=== PATIENT | female | born 1965 | race Hispanic/Latino ===

== ENCOUNTER 2019-11-20 12:12 | Emergency (ER) | payer SELFPAY ==
[2019-11-20 14:15] LABS: Urine Blood 2+ (NEG); Urine Glucose 2+ (NEG); Urine Protein 2+ (NEG); Urine Specific Gravity 1.025 (1.005-1.030); Urine pH 5.5 (5.0-7.0)
[2019-11-20 14:21] LABS: Urine Bacteria >50 /HPF (<20); Urine Culture Reflex Order REFLEXED
[2019-11-20 15:07] LABS: Absolute Lymphocytes (CBC) 0.6 K/uL (0.7-4.9); Basophils % 0.1 % (0-1.3); Hematocrit 43.2 % (36.0-45.0); Lymphocytes % 5.1 % (15.3-44.8); MPV 8.3 fL (7.6-11.3); RBC Red Blood Cell Count 4.84 M/uL (3.86-4.86)
[2019-11-20 15:14] LABS: Albumin 3.8 g/dL (3.4-5.0); Bilirubin Direct 0.3 mg/dL (0-0.2); Bilirubin Total 1.4 mg/dL (0.2-1.0); Potassium 4.1 mmol/L (3.5-5.1); Protein, Total 8.7 g/dL (6.4-8.2)
--- NOTE | 2019-11-20 15:29 | RAD REPORT ---
EXAM DESCRIPTION: CT - Stone Protocol - 11/20/2019 3:13 pm CLINICAL HISTORY: Abdominal pain. Right flank pain COMPARISON: None. TECHNIQUE: Computed axial tomography of the abdomen pelvis was obtained without oral or IV contrast. Lack of IV and oral contrast limits evaluation of solid organs, bowel, and vessels. Coronal reformat margie images were obtained and reviewed. All CT scans are performed using dose optimization technique as appropriate and may include automated exposure control or mA/KV adjustment according to patient size. FINDINGS: A renal calculus is not seen. An ureteral calculus is not noted. A bladder calculus is not present. Mild right perirenal stranding. Mild fatty liver The Spleen, pancreas and adrenals appear grossly normal There is no evidence of diverticulitis. The appendix appears normal Small umbilical hernia Small left posterolateral disc herniation may be present L4-5 IMPRESSION: Negative for a genitourinary calculus Mild right perirenal stranding may indicate renal inflammation
[2019-11-20 15:32] LABS: Blood Morphology Comment NOT SEEN (NOT SEEN); Platelet Estimate ADEQ; Urine White Blood Cell Casts OK
[2019-11-20] MEDS ORDERED: CEFTRIAXONE/SWI 1gm 1 GM/10 ML SYR ONE (15:42)
[2019-11-20] MEDS ORDERED: MORPHINE 4 MG/ML SYR ONE (15:57)
[2019-11-20] MEDS ORDERED: ONDANSETRON 4 MG/2 ML VIAL ONE (15:57)
--- NOTE | 2019-11-20 16:52 | ER ---
Nurse's Notes [facility] Name: Jon Fernandes Age: 54 yrs Sex: Female : 1965 Arrival Date: 11/20/2019 Time: 12:15 Bed 20 Private MD: Diagnosis: Right flank pain;Pyleonephritis Presentation: 11/19 12:44 Chief complaint: Patient states: R flank pain since Monday. Reports strong odor of ca1 urine and headaches, chills. Denies fever. Coronavirus screen: The patient has NOT traveled to a country currently being monitored by the [facility] within the last 14 days. The patient has NOT had contact with any known and/or suspected case of coronavirus. Ebola Screen: Patient negative for fever greater than or equal to 101.5 degrees Fahrenheit, and additional compatible Ebola Virus Disease symptoms Patient denies exposure to infectious person. Patient denies travel to an Ebola-affected area in the 21 days before illness onset. No symptoms or risks identified at this time. Initial Sepsis Screen: Does the patient meet any 2 criteria? No. Patient's initial sepsis screen is negative. Does the patient have a suspected source of infection? No. Patient's initial sepsis screen is negative. Risk Assessment: Do you want to hurt yourself or someone else? Patient reports no desire to harm self or others. Onset of symptoms was November 20, 2019. 12:44 Method Of Arrival: Ambulatory ca1 12:44 Acuity: DELBERT 3 ca1 Triage Assessment: 12:47 General: Appears in no apparent distress. comfortable, Behavior is calm, cooperative, ca1 appropriate for age. Pain: Complains of pain in posterior aspect of right lateral abdomen. Musculoskeletal: Circulation, motion, and sensation intact. Capillary refill < 3 seconds. 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 - Social history:: Smoking status: Patient denies any tobacco usage or history of. Screenin:30 Abuse screen: Denies threats or abuse. Denies injuries from another. Nutritional jl7 screening: No deficits noted. Tuberculosis screening: No symptoms or risk factors identified. Fall Risk None identified. Assessment: 14:30 General: Appears in no apparent distress. uncomfortable, Behavior is calm, cooperative, jl7 appropriate for age. Pain: Complains of pain in right flank Pain radiates to right lower quadrant Pain currently is 5 out of 10 on a pain scale. Pain began 2-3 days ago. Is continuous. Neuro: Level of Consciousness is awake, alert, obeys commands, Oriented to person, place, time, situation. Cardiovascular: Patient's skin is warm and dry. Respiratory: Airway is patent Respiratory effort is even, unlabored, Respiratory pattern is regular, symmetrical. : Reports pain with urination, Denies burning with urination. Derm: Skin is pink, warm \\T\\ dry. 17:33 Reassessment: Pt's temp 102.5, states "I'll take some medicine when I get home.". jl7 Vital Signs: 12:44 BP 135 / 58; Pulse 101; Resp 17 S; Temp 97.4(O); Pulse Ox 97% on R/A; Weight 56.7 kg ca1 (R); Height 4 ft. 11 in. (149.86 cm) (R); 15:30 BP 136 / 69; Pulse 111; Resp 16 S; Temp 99.3(O); Pulse Ox 99% on R/A; Pain 5/10; jl7 16:00 BP 149 / 60; Pulse 102; Resp 16 S; Pulse Ox 100% on R/A; jl7 17:15 BP 129 / 86; Pulse 112; Resp 16 S; Temp 102.5(O); Pulse Ox 100% on R/A; jl7 12:44 Body Mass Index 25.25 (56.70 kg, 149.86 cm) ca1 ED Course: 12:15 Patient arrived in ED. rg4 12:40 Liam Figueroa MD is Attending Physician. kdr 12:47 Triage completed. ca1 12:47 Arm band placed on right wrist. ca1 13:18 Urine collected: clean catch specimen, cloudy, Amount Voided: 50mL. ca1 13:57 Reddy Gerardo, LÓPEZ is Primary Nurse. jl7 14:15 Urine Microscopic Only Sent. ca1 14:30 Patient has correct armband on for positive identification. Bed in low position. Call jl light in reach. Side rails up X 1. 14:45 Initial lab(s) drawn, by me, sent to lab. Inserted saline lock: 20 gauge in left jl7 antecubital area, using aseptic technique. Blood collected. 15:15 CT Stone Protocol In Process Unspecified. EDMS 17:38 No provider procedures requiring assistance completed. IV discontinued, intact, jl7 bleeding controlled, No redness/swelling at site. Pressure dressing applied. Administered Medications: 15:53 Drug: Zofran (Ondansetron) 4 mg Route: IVP; Site: left antecubital; jl7 16:15 Follow up: Response: No adverse reaction jl7 15:55 Drug: morphine 4 mg Route: IVP; Site: left antecubital; jl7 16:15 Follow up: Response: No adverse reaction; Pain is decreased jl7 16:00 Drug: Rocephin 1 grams Route: IV; Rate: calculated rate; Site: left antecubital; jl7 16:03 Follow up: Response: No adverse reaction; IV Status: Completed infusion jl7 16:04 Not Given (Duplicate Order): Rocephin - (cefTRIAXone) 1 grams IVPB once over 30 mins; jl7 (mix in 50 mL NS) Outcome: 16:52 Discharge ordered by . kdr 17:38 Discharged to home ambulatory. jl7 17:38 Condition: stable 17:38 Discharge instructions given to patient, family, Instructed on discharge instructions, follow up and referral plans. medication usage, Demonstrated understanding of instructions, follow-up care, medications, Prescriptions given X 2. 17:39 Patient left the ED. jl7 Addendum: 11/22/2019 17:55 Addendum: Culture Results: Positive urine culture. Bacteria is resistant to, has i w intermediate sensitivity, or is not tested against prescribed antibiotics. Report given to JENSEN for further evaluation and then to textile machinery instructor for follow up with patient. Phone call Attempt #1 pt still having urinary s/s Prescription called-in to pharmacy of choice. [facility] in [place], Augmentin 875 PO BID X 10 days, no refills. Signatures: Dispatcher [employer] [facility] Liam Figueroa MD MD kdr Williams, Irene, RN RN iw Garcia, Rubi rg4 Reddy Gerardo RN RN jl7 Acob, Emi, RN RN ca1
--- NOTE | 2019-11-20 16:53 | EDPHYS ---
Physician Documentation [facility] Name: Jon Fernandes Age: 54 yrs Sex: Female : 1965 Arrival Date: 11/20/2019 Time: 12:15 Bed 20 Private MD: ED Physician Liam Figueroa HPI: 11/20 08:14 This 54 yrs old Female presents to ER via Ambulatory with complaints of Back kdr Pain. 08:14 The patient presents with pain that is acute. The symptoms are located in the right kdr flank. Onset: The symptoms/episode began/occurred gradually, Since Monday. The pain does not radiate. Associated signs and symptoms: Pertinent positives: nausea, Pertinent negatives: abdominal pain, dysuria, fever, headache, hematuria, incontinence, nausea, numbness, vomiting, weakness. The problem was sustained from unknown cause. Modifying factors: The patient symptoms are alleviated by nothing, the patient symptoms are aggravated by any movement. Severity of symptoms: At their worst the symptoms were mild, in the emergency department the symptoms are unchanged. The patient has not experienced similar symptoms in the past. The patient has not recently seen a physician. 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 - Social history:: Smoking status: Patient denies any tobacco usage or history of. ROS: 11/20 08:14 Constitutional: Negative for fever, chills, and weight loss, Eyes: Negative for injury, kdr pain, redness, and discharge, ENT: Negative for injury, pain, and discharge, Neck: Negative for injury, pain, and swelling, Cardiovascular: Negative for chest pain, palpitations, and edema, Respiratory: Negative for shortness of breath, cough, wheezing, and pleuritic chest pain, Back: Negative for injury and pain, : Negative for injury, bleeding, discharge, and swelling, MS/Extremity: Negative for injury and deformity, Skin: Negative for injury, rash, and discoloration, Neuro: Negative for headache, weakness, numbness, tingling, and seizure activity. Psych: Negative for depression, anxiety, suicide ideation, homicidal ideation, and hallucinations, Allergy/Immunology: Negative for hives, rash, and allergies, Endocrine: Negative for neck swelling, polydipsia, polyuria, polyphagia, and marked weight changes, Hematologic/Lymphatic: Negative for swollen nodes, abnormal bleeding, and unusual bruising. Abdomen/GI: Positive for abdominal pain, nausea, Negative for constipation, abdominal cramps, abdominal distension, anorexia, dysphagia, hematemesis, black/tarry stool, rectal pain, rectal bleeding, bowel incontinence. Exam: 08:14 Constitutional: This is a well developed, well nourished patient who is awake, alert, kdr and in no acute distress. Head/Face: Normocephalic, atraumatic. Eyes: Pupils equal round and reactive to light, extra-ocular motions intact. Lids and lashes normal. Conjunctiva and sclera are non-icteric and not injected. Cornea within normal limits. Periorbital areas with no swelling, redness, or edema. Neck: Trachea midline, no thyromegaly or masses palpated, and no cervical lymphadenopathy. Supple, full range of motion without nuchal rigidity, or vertebral point tenderness. No Meningismus. Chest/axilla: Normal chest wall appearance and motion. Nontender with no deformity. No lesions are appreciated. Cardiovascular: Regular rate and rhythm with a normal S1 and S2. No gallops, murmurs, or rubs. Normal PMI, no JVD. No pulse deficits. Respiratory: Lungs have equal breath sounds bilaterally, clear to auscultation and percussion. No rales, rhonchi or wheezes noted. No increased work of breathing, no retractions or nasal flaring. Back: No spinal tenderness. No costovertebral tenderness. Full range of motion. Skin: Warm, dry with normal turgor. Normal color with no rashes, no lesions, and no evidence of cellulitis. MS/ Extremity: Pulses equal, no cyanosis. Neurovascular intact. Full, normal range of motion. Neuro: Awake and alert, GCS 15, oriented to person, place, time, and situation. Cranial nerves II-XII grossly intact. Motor strength 5/5 in all extremities. Sensory grossly intact. Cerebellar exam normal. Normal gait. Psych: Awake, alert, with orientation to person, place and time. Behavior, mood, and affect are within normal limits. 08:14 Abdomen/GI: Inspection: abdomen appears normal, Bowel sounds: normal, Palpation: soft, mild abdominal tenderness, in the epigastric area and right upper quadrant. Vital Signs: 11/19 12:44 BP 135 / 58; Pulse 101; Resp 17 S; Temp 97.4(O); Pulse Ox 97% on R/A; Weight 56.7 kg ca1 (R); Height 4 ft. 11 in. (149.86 cm) (R); 15:30 BP 136 / 69; Pulse 111; Resp 16 S; Temp 99.3(O); Pulse Ox 99% on R/A; Pain 5/10; jl7 16:00 BP 149 / 60; Pulse 102; Resp 16 S; Pulse Ox 100% on R/A; jl7 17:15 BP 129 / 86; Pulse 112; Resp 16 S; Temp 102.5(O); Pulse Ox 100% on R/A; jl7 12:44 Body Mass Index 25.25 (56.70 kg, 149.86 cm) ca1 MDM: 16:52 Patient medically screened. [facility] 11/20 08:14 Data reviewed: vital signs, nurses notes. Counseling: I had a detailed discussion with kdr the patient and/or guardian regarding: the historical points, exam findings, and any diagnostic results supporting the discharge/admit diagnosis, lab results, radiology results, the need for outpatient follow up. 11/19 13:40 Order name: Urine Dipstick--Ancillary (enter results); Complete Time: 15:16 11/19 13:40 Order name: Urine Microscopic Only; Complete Time: 15:16 bd 11/19 14:29 Order name: Basic Metabolic Panel; Complete Time: 15:16 kdr 11/19 14:29 Order name: CBC with Diff; Complete Time: 15:45 kdr 11/19 14:29 Order name: Creatinine for Radiology; Complete Time: 15:16 kdr 11/19 14:29 Order name: Hepatic Function; Complete Time: 15:16 kdr 11/19 14:29 Order name: Lipase; Complete Time: 15:16 kdr 11/19 14:49 Order name: Urine Culture EDMS 11/19 14:59 Order name: CT Stone Protocol; Complete Time: 15:45 kdr 11/19 15:32 Order name: CBC Smear Scan; Complete Time: 15:45 [facility] 11/19 14:29 Order name: IV Saline Lock; Complete Time: 14:49 [facility] 11/19 14:29 Order name: Labs collected and sent; Complete Time: 14:49 [facility] 11/19 14:29 Order name: Urine Dipstick-Ancillary (obtain specimen); Complete Time: 14:38 [facility] Administered Medications: 11/19 15:53 Drug: Zofran (Ondansetron) 4 mg Route: IVP; Site: left antecubital; jl7 16:15 Follow up: Response: No adverse reaction jl7 15:55 Drug: morphine 4 mg Route: IVP; Site: left antecubital; jl7 16:15 Follow up: Response: No adverse reaction; Pain is decreased jl7 16:00 Drug: Rocephin 1 grams Route: IV; Rate: calculated rate; Site: left antecubital; jl7 16:03 Follow up: Response: No adverse reaction; IV Status: Completed infusion jl7 16:04 Not Given (Duplicate Order): Rocephin - (cefTRIAXone) 1 grams IVPB once over 30 mins; jl7 (mix in 50 mL NS) Disposition: 11/20/19 16:52 Discharged to Home. Impression: Right flank pain, Pyleonephritis. - Condition is Stable. - Prescriptions for Tramadol 50 mg Oral Tablet - take 1 tablet by ORAL route every 8 hours as needed; 12 tablet. Bactrim DS 800- 160 mg Oral Tablet - take 1 tablet by ORAL route every 12 hours for 10 days; 20 tablet. - Medication Reconciliation Form, Thank You Letter, Antibiotic Education, Prescription Opioid Use form. - Follow up: Private Physician; When: 2 - 3 days; Reason: If symptoms return, Further diagnostic work-up, Recheck today's complaints, Continuance of care, Re-evaluation by your physician. - Problem is new. - Symptoms have improved. Signatures: Dispatcher [employer] [facility] Liam Figueroa MD MD kdr Leal, Jahala RN RN jl7 Emi Lewis RN RN ca1 Corrections: (The following items were deleted from the chart) 16:26 15:47 Urine Culture+[id number].LAB.BRZ ordered. [facility] 17:39 16:52 11/20/2019 16:52 Discharged to Home. Impression: Right flank pain; jl7 Pyleonephritis. Condition is Stable. Forms are Medication Reconciliation Form, Thank You Letter, Antibiotic Education, Prescription Opioid Use. Follow up: Private Physician; When: 2 - 3 days; Reason: If symptoms return, Further diagnostic work-up, Recheck today's complaints, Continuance of care, Re-evaluation by your physician. Problem is new. Symptoms have improved. kdr
[2019-11-20 18:02] VITALS: O2SAT 100
[2019-11-20 18:04] VITALS: BP 129/86; TEMP 102.5
== END 2019-11-20 17:39 | disposition home or self-care (01) ==
LOC: ER 12:12
DX: N12 Tubulo-interstitial nephritis, not specified as acute or chronic (principal)
CPT/HCPCS: 36415; 74176; 76377; 80048; 80076; 81003; 81015; 83690; 85025; 87077; 87086; 87088; 87186; 96374; 96375; 99284; J0696; J2405

== ENCOUNTER 2025-04-30 13:59 | Emergency (ER) | payer SELFPAY ==
--- OUTSIDE RECORDS SUMMARY | 2025-04-30 14:02 | XMS REPORT | Clinical Summary ---
Author Name Unknown Organization [facility] Address [address] [place] [address] Care Team Providers Care Nursing Support Worker Name Role Phone Unavailable Primary Care Provider Unavailabl e Encounters Date Type Department Care Team Description 05/01/2024 Documentation Breast Imaging [address] [facility] [place] [address] Lucila Rolle S, RT after 04/30/2024 Social History Tobacco Use Types Packs/Day Years Used Date Smoking Tobacco: Never Assessed Comments Unknown Sex and Gender Information Value Date Recorded Sex Assigned at Not on file Legal Sex Female 11:08 AM CDT Gender Identity Not on file Sexual Orientation Not on file Plan of Treatment Health Maintenance Due Date Last Done Comments Pneumococcal Vaccine: 50+ Years (1 of 1 - PCV) 016 COVID-19 Vaccine ( season) 2024 Influenza Vaccine (#1) 2025
[2025-04-30] MEDS ORDERED: NA CHLORIDE 0.9% 500 ML ONE (15:07)
[2025-04-30 15:28] LABS: Absolute Lymphocytes (CBC) 1.7 K/uL (0.7-4.9); Hematocrit 40.7 % (36.0-45.0); Hemoglobin 14.2 g/dL (12.0-15.0); MCH 30.3 pg (27.0-35.0); MCHC 35.0 g/dL (32.0-36.0); MCV 86.7 fL (80-100); MPV 7.3 fL (7.6-11.3); Nucleated RBC Absolute Count 0.0 (0-0); Nucleated Red Blood Cells % 0.0 % (0-0); RBC Red Blood Cell Count 4.70 M/uL (3.86-4.86); White Blood Count 5.50 thou/uL (4.3-10.9)
[2025-04-30 15:31] LABS: Sqamous Epithelial None Seen /HPF (None Seen); Urine Crystals Unidentified Few /HPF (None Seen); Urine Culture Reflex Order NOT NEEDED; Urine Microscopic Reflex YN ORDER UMIC; Urine Yeast (Budding) Trace /HPF (None Seen)
[2025-04-30] MEDS ORDERED: KETOROLAC 30 MG/ML INJ ONE (15:32)
[2025-04-30 16:06] LABS: ALT/SGPT 29.0 U/L (13-56); Albumin 4.3 g/dL (3.4-5.0); Albumin/Globulin Ratio 1.4 (1.1-1.8); Alkaline Phosphatase 74.0 U/L (45-117); Anion Gap 9.1 mEq/L (5.0-15.0); BUN Blood Urea Nitrogen 7.0 mg/dL (7-18); Globulin 3.0 g/dL (2.3-3.5); Glucose Level 106.0 mg/dL (74-106); Lipase 42.0 U/L (13-75)
[2025-04-30 16:07] LABS: AST/SGOT 27.0 U/L (15-37); Potassium 4.1 mEq/L (3.5-5.1)
--- NOTE | 2025-04-30 16:23 | RAD REPORT ---
EXAMINATION: Abdomen Pelvis W/Wo Contrast CLINICAL INDICATION: Female, 59 years old.right flank pain TECHNIQUE: CT abdomen and pelvis was performed before and after the administration of IV contrast as per department protocol. Axial, sagittal and coronal reconstructions were obtained. One or more of the following dose reduction techniques were used: Automated exposure control, adjustment of the mA a nd/or kV according to patient size, and/or iterative reconstruction. Unless otherwise specified, incidental findings do not require dedicated imaging follow-up. [id number]. COMPARISON: 11/20/2019 FINDINGS: LOWER CHEST: No acute process identified.No significant pericardial effusion. Mild circumferential th ickening of the distal esophagus which could reflect esophagitis. UPPER GI: No significant abnormality. LIVER: No significant focal abnormality. GALLBLADDER/BILE DUCTS: No biliary ductal dilatation.? PANCREAS: No mass, ductal dilation, or ira-pancreatic fluid. SPLEEN: Unremarkable. ADRENALS: No adrenal masses. KIDNEYS AND URETERS: Mild left-sided hydroureteronephrosis. No obstructing stone or mass.Right renal scarring.No renal calculi.No ureteral calculi. ABDOMINAL AORTA AND OTHER VESSELS: Normal caliber aorta and IVC. PERITONEUM: No abnormal free fluid. No free air. LYMPH NODES: No pathologic lymphadenopathy. ABDOMINAL WALL: Small fat containing umbilical hernia. SMALL BOWEL/COLON: Small bowel has normal course and caliber. No colonic wall thickening or pericolon ic inflammatory changes.Normal appendix. Mild diverticulosis without diverticulitis. Low formed stool burden. URINARY BLADDER: Distended bladder. REPRODUCTIVE ORGANS: No pathologic process. MUSCULOSKELETAL: Multilevel degenerative changes in the spine. No acute fracture. ADDITIONAL FINDINGS: None. IMPRESSION: Mild left-sided hydroureteronephrosis without obstructing stone or mass. The bladder is distended. No urinary tract calculi.
--- NOTE | 2025-04-30 17:40 | EDPHYS ---
Physician Documentation [facility] Name: Jon Fernandes Age: 59 yrs Sex: Female : 1965 Arrival Date: 04/30/2025 Time: 13:59 Bed 11 Private MD: ED Physician Chalo Loco HPI: 04/30 14:25 This 59 yrs old Female presents to ER via Ambulatory with complaints of cp Abdominal Pain. 14:25 The patient presents with abdominal pain in the lower abdomen, right lower quadrant, cp right lower back. 14:25 Onset: The symptoms/episode began/occurred 2 week(s) ago, and became worse yesterday. cp Associated signs and symptoms: Pertinent negatives: chest pain, constipation, diarrhea, fever, headache, vomiting. The symptoms are described as waxing/waning. 14:25 Severity of pain: in the emergency department the pain is unchanged despite home cp interventions. Historical: - Allergies: 14:18 No Known Allergies; dd2 - PMHx: 14:18 Diabetes mellitus; dd2 - PSHx: 14:18 section; dd2 - Immunization history:: Adult Immunizations up to date. - Infectious Disease History:: Denies. - Social history:: Smoking status: Patient denies any tobacco usage or history of. ROS: 14:30 Constitutional: Negative for body aches, chills, fever, poor PO intake, cp 14:30 Eyes: Negative for injury, pain, redness, and discharge, cp 14:30 ENT: Negative for drainage from ear(s), ear pain, sore throat, difficulty swallowing, difficulty handling secretions, 14:30 Cardiovascular: Negative for chest pain, palpitations, 14:30 Respiratory: Negative for cough, shortness of breath, wheezing, 14:30 Abdomen/GI: Positive for abdominal pain, nausea, Negative for vomiting, diarrhea, constipation, anorexia, black/tarry stool, rectal bleeding, 14:30 Back: Positive for right low back, 14:30 : Negative for vaginal bleeding, vaginal discharge, 14:30 Neuro: Negative for altered mental status, 14:30 All other systems are negative, Exam: 14:33 Constitutional: The patient appears in no acute distress, alert, awake, cp non-diaphoretic, non-toxic, well developed, well nourished, uncomfortable, 14:33 Head/Face: Normocephalic, atraumatic. cp 14:33 Eyes: Periorbital structures: appear normal, Conjunctiva: normal, no exudate, no injection, Sclera: no appreciated abnormality, Lids and lashes: appear normal, bilaterally, 14:33 ENT: External ear(s): are unremarkable, Nose: is normal, Mouth: Lips: moist, Oral mucosa: moist, Posterior pharynx: Airway: no evidence of obstruction, patent, 14:33 Chest/axilla: Inspection: normal, 14:33 Cardiovascular: Rate: normal, Rhythm: regular, Edema: is not appreciated, JVD: is not appreciated, 14:33 Respiratory: the patient does not display signs of respiratory distress, Respirations: normal, no use of accessory muscles, no retractions, labored breathing, is not present, Breath sounds: are clear throughout, no decreased breath sounds, no stridor, no wheezing, 14:33 Abdomen/GI: Inspection: abdomen appears normal, Bowel sounds: active, all quadrants, Palpation: soft, in all quadrants, moderate abdominal tenderness, in the left lower quadrant, 14:33 Back: pain, that is moderate, of the left low back, ROM is normal, 14:33 Skin: cellulitis, is not appreciated, no rash present. 14:33 Neuro: Orientation: to person, place \T\ time. Mentation: is normal, Motor: moves all fours, strength is normal, Gait: is steady, Vital Signs: 14:16 BP 155 / 67; Pulse 84; Resp 16; Temp 97.9; Pulse Ox 100% on R/A; Pain 9/10; dd2 18:03 BP 147 / 71; Pulse 79; Resp 16; Pulse Ox 100% ; bp 14:16 Pain Scale: Adult dd2 MDM: 14:14 Medical Screening Exam initiated cp 15:00 Differential diagnosis: bowel obstruction, diverticulitis, Pyelonephritis, cp Ureterolithiasis, urinary tract infection, sepsis. 17:37 Refusal of service: The patient/guardian displays adequate decision making capability cp and despite a detailed discussion of alternatives, benefits, risks, and consequences refuses: barlow catheter or catheter for self cath. 17:38 Data reviewed: vital signs, nurses notes, lab test result(s), radiologic studies, CT cp scan, and as a result, I will discharge patient. 17:38 I considered the following discharge prescriptions or medication management in the emergency department Medications were administered in the Emergency Department. See MAR. Care significantly affected by the following chronic conditions: Diabetes. Counseling: I had a detailed discussion with the patient and/or guardian regarding the historical points, exam findings, and any diagnostic results supporting the discharge/admit diagnosis, lab results, radiology results, the need for outpatient follow up, for definitive care, a urologist, to return to the emergency department if symptoms worsen or persist or if there are any questions or concerns that arise at home. ED course: VSS. Discussed results of today's testing with CT showing bladder distension. Patient declined barlow placement at this time and understands need for urology f/u. Patient understands she can return to ED at anytime for reevaluation worsening symptoms. 04/30 14:20 Order name: CBC with Diff; Complete Time: 16:17 04/30 16:17 Interpretation: Normal except: MPV 7.3. 04/30 14:20 Order name: CMP; Complete Time: 16:17 04/30 16:58 Interpretation: Normal except: CL 109. 04/30 14:20 Order name: Lipase; Complete Time: 16:17 04/30 14:20 Order name: UA Rfx Lucas Cult if indicated; Complete Time: 16:17 04/30 16:58 Interpretation: Normal except: [facility] Turbid; Urine SG < 1.005; UGLUC TRACE; BYST Trace. 04/30 14:20 Order name: Test, Serum; Complete Time: 16:17 04/30 14:20 Order name: CT Abd/Pelvis- W/WO Contrast; Complete Time: 16:43 04/30 14:20 Order name: IV Saline Lock; Complete Time: 15:15 04/30 14:20 Order name: Labs collected and sent; Complete Time: 15:15 04/30 16:45 Order name: Bladder Scanner: pre and post void; Complete Time: 17:12 cp Administered Medications: 15:15 Drug: TORadol - Ketorolac IVP 15 mg IVP once Route: IVP; Site: right forearm; bp 18:04 Follow up: Response: No adverse reaction bp 15:15 Drug: NS 0.9% IV 500 ml 500 ml IV at 1 bolus once; to be given as a bolus over 60 bp minutes Volume: 500 ml; Route: IV; Rate: 1 bolus; Site: right forearm; 18:04 Follow up: IV Status: Completed infusion bp Disposition: 18:45 I was immediately available on-site in the Emergency Department for consultation in the ms3 care of the patient. Disposition Summary: 04/30/25 17:39 Discharge Ordered Notes: Location: Home cp Problem: new cp Symptoms: have improved cp Condition: Stable cp Diagnosis - Retention of urine, unspecified cp - Other hydronephrosis cp - Dorsalgia, unspecified cp Followup: cp - With: Nate Coles MD - When: 2 - 3 days - Reason: urine retention Discharge Instructions: - Discharge Summary Sheet cp - Acute Back Pain, Adult cp - Musculoskeletal Pain cp - Acute Urinary Retention, Female cp - Hydronephrosis cp Forms: - Medication Reconciliation Form cp - Antibiotic Education cp - Prescription Opioid Use cp - Patient Portal Instructions cp - Leadership Thank You Letter cp Prescriptions: - diclofenac potassium 50 mg Oral tablet - take 1 tablet ORAL route every 12 hours; 20 tablet; Refills: 0, Product cp Selection Permitted - methocarbamol 500 mg Oral tablet - take 1 tablet ORAL route every 8 hours As needed; 30 tablet; Refills: 0, cp Product Selection Permitted Signatures: Dispatcher [employer] EDIN Shravan Fischer PA PA cp Peltier, Brian, RN RN Chalo Davidson DO DO ms3 CODY MULLINS RN RN dd2 Corrections: (The following items were deleted from the chart) 14:21 14:21 Abdomen Pelvis W/Wo Con+CT.RAD.BRZ ordered. [facility] EDIN 05/01 17:33 04/30 14:25 The patient presents with abdominal pain in the lower abdomen, cp cp
--- NOTE | 2025-04-30 17:40 | ER ---
Nurse's Notes [facility] Name: Jon Fernandes Age: 59 yrs Sex: Female : 1965 Arrival Date: 04/30/2025 Time: 13:59 Bed 11 Private MD: Diagnosis: Retention of urine, unspecified;Other hydronephrosis;Dorsalgia, unspecified Presentation: 04/30 14:16 Chief complaint: Patient states: SHE IS HAVING RT LOWER BACK AND RT SIDE PAIN X2 WEEKS. dd2 REPORTS THE PAIN COMES AND GOES BUT GOT WORSE TODAY. Coronavirus screen: At this time, the client does not indicate any symptoms associated with coronavirus-19. Ebola Screen: No symptoms or risks identified at this time. Initial Sepsis Screen: Does the patient meet any 2 criteria? No. Patient's initial sepsis screen is negative. Does the patient have a suspected source of infection? No. Patient's initial sepsis screen is negative. Risk Assessment: Do you want to hurt yourself or someone else? Patient reports no desire to harm self or others. Onset of symptoms is unknown. 14:16 Method Of Arrival: Ambulatory dd2 14:16 Acuity: DELBERT 3 dd2 Triage Assessment: 14:18 General: Appears in no apparent distress. uncomfortable, Behavior is calm, cooperative, dd2 appropriate for age. Pain: Complains of pain in right low back and anterior aspect of right lateral abdomen. GI: Reports lower abdominal pain. :. : Denies burning with urination, urinary frequency, urgency. Musculoskeletal: Reports pain in right low back. Historical: - Allergies: 14:18 No Known Allergies; dd2 - PMHx: 14:18 Diabetes mellitus; dd2 - PSHx: 14:18 section; dd2 - Immunization history:: Adult Immunizations up to date. - Infectious Disease History:: Denies. - Social history:: Smoking status: Patient denies any tobacco usage or history of. Screenin:30 [facility] ED Fall Risk Assessment (Adult) History of falling in the last 3 months, bp including since admission No falls in past 3 months (0 pts) Confusion or Disorientation No (0 pts) Intoxicated or Sedated No (0 pts) Impaired Gait No (0 pts) Mobility Assist Device Used No (0 pt) Altered Elimination No (0 pt) Score/Fall Risk Level 0 - 2 = Low Risk Oriented to surroundings. Abuse screen: Denies threats or abuse. Denies injuries from another. Nutritional screening: No deficits noted. Tuberculosis screening: No symptoms or risk factors identified. Assessment: 14:30 General: SEE TRIAGE NOTE. bp 17:12 Reassessment: POST VOID BLADDER 435ML. bp Vital Signs: 14:16 BP 155 / 67; Pulse 84; Resp 16; Temp 97.9; Pulse Ox 100% on R/A; Pain 9/10; dd2 18:03 BP 147 / 71; Pulse 79; Resp 16; Pulse Ox 100% ; bp 14:16 Pain Scale: Adult dd2 ED Course: 14:01 Patient arrived in ED. mr 14:03 Shravan Fischer PA is PHCP. cp 14:03 Chalo Loco DO is Attending Physician. cp 14:18 Triage completed. dd2 14:18 Arm band placed on right wrist. dd2 14:18 Initial lab(s) drawn, by pa, sent to lab. Urine collected: clean catch specimen, clear. bp Inserted saline lock: 20 gauge in right forearm, using aseptic technique. Blood collected. Flushed with 10 mL NS. 14:30 Patient has correct armband on for positive identification. bp 15:05 Abe Oleary, RN is Primary Nurse. bp 16:17 CT Abd/Pelvis- W/WO Contrast In Process Unspecified. EDMS 17:38 Nate Coels MD is Referral Physician. cp 18:03 No provider procedures requiring assistance completed. IV discontinued, intact, bp bleeding controlled, No redness/swelling at site. Pressure dressing applied. Administered Medications: 15:15 Drug: TORadol - Ketorolac IVP 15 mg IVP once Route: IVP; Site: right forearm; bp 18:04 Follow up: Response: No adverse reaction bp 15:15 Drug: NS 0.9% IV 500 ml 500 ml IV at 1 bolus once; to be given as a bolus over 60 bp minutes Volume: 500 ml; Route: IV; Rate: 1 bolus; Site: right forearm; 18:04 Follow up: IV Status: Completed infusion bp Medication: 18:03 VIS not applicable for this client. bp Outcome: 17:39 Discharge ordered by MD. cp 18:03 Discharged to home ambulatory, bp 18:03 Condition: stable 18:03 Discharge instructions given to patient, Instructed on discharge instructions, follow up and referral plans. medication usage, Demonstrated understanding of instructions, follow-up care, medications, Prescriptions given X 2, 18:05 Patient left the ED. bp Signatures: Dispatcher [employer] EDPA Ute Alcantar, Reg Reg mr Aaliyah, Shravan, PA Abe Lester cp, RN RN CODY Lantigua RN RN dd2 Corrections: (The following items were deleted from the chart) 14:22 14:16 BP 108 / 92; Pulse 84bpm; Resp 16bpm; Pulse Ox 100% RA; Temp 97.9F; Pain 9/10, dd2 Adult; dd2
[2025-04-30 18:34] VITALS: TEMP 97.9; O2SAT 100
[2025-04-30 18:35] VITALS: BP 147/71
== END 2025-04-30 18:05 | disposition home or self-care (01) ==
LOC: ER 13:59
DX: R33.9 Retention of urine, unspecified (principal); N13.39 Other hydronephrosis; M54.9 Dorsalgia, unspecified
CPT/HCPCS: 36415; 74178; 80053; 81001; 83690; 84703; 85025; 96361; 96374; 99284; J7040; Q9967